=== PATIENT | female | born 2005 | race Two or more races ===

== ENCOUNTER 2024-05-08 00:55 | Emergency (ER) | payer OTHER ==
[~2024-05-08] VITALS: Ht 154.9 cm; Wt 64.5 kg
[2024-05-08 01:41] LABS: APPEARANCE, URINE CLEAR (CLEAR); BACTERIA, URINE AUTO 1+ (NEGATIVE); BILIRUBIN, URINE AUTO NEGATIVE (NEGATIVE); BLOOD, URINE BLOOD NEGATIVE (NEGATIVE); COLOR, URINE STRAW (YELLOW); GLUCOSE, URINE (UA) AUTO NEGATIVE (NEGATIVE); KETONE, URINE AUTO NEGATIVE (NEGATIVE); LEUKOCYTE ESTERASE, URINE AUTO NEGATIVE (NEGATIVE); NITRITE, URINE AUTO NEGATIVE (NEGATIVE); PROTEIN, URINE AUTO NEGATIVE (NEGATIVE); RBC, URINE AUTO 0 /HPF (0-3); SPECIFIC GRAVITY URINE AUTO 1.005 (1.002-1.035); SQUAMOUS EPITHELIAL CELL UR AU 2 /HPF (0-6); UROBILINOGEN, URINE AUTO 0.2 mg/dL (0.0-2.0); WBC, URINE AUTO 0 /HPF (0-3)
[2024-05-08 01:42] LABS: BASO % 0.3 % (0.0-1.0); EOS # 0.1 10^3/uL (0.0-0.5); EOS % 0.6 % (0.0-3.0); HEMATOCRIT 37.5 % (36.0-47.0); HEMOGLOBIN 12.2 g/dl (12.0-15.5); LYMPH % 21.6 % (24.0-44.0); MEAN CORPUSCULAR HEMOGLOBIN 24.7 pg (27.0-33.0); MEAN CORPUSCULAR HGB CONC 32.5 g/dl (32.0-36.5); MEAN CORPUSCULAR VOLUME 75.9 fl (80.0-96.0); MONO % 7.3 % (2.0-8.0); NEUTROPHILS # 9.7 10^3/uL (1.5-8.5); NEUTROPHILS % 69.8 % (36.0-66.0); PLATELET COUNT, AUTOMATED 486 10^3/uL (150-450); RED BLOOD COUNT 4.94 10^6/uL (4.00-5.40); WHITE BLOOD COUNT 13.9 10^3/uL (4.0-10.0)
[2024-05-08 02:01] LABS: BLOOD UREA NITROGEN 5 MG/DL (9-23); CALCIUM LEVEL 10.2 MG/DL (8.5-10.1); CARBON DIOXIDE LEVEL 26 MMOL/L (20-31); CHLORIDE LEVEL 104 MMOL/L (98-107); CREATININE FOR GFR 0.48 MG/DL (0.55-1.30); GLOMERULAR FILTRATION RATE > 60.0 (>60); GLUCOSE, FASTING 90 MG/DL (60-100); POTASSIUM SERUM 3.6 MMOL/L (3.5-5.1); SODIUM LEVEL 136 MMOL/L (136-145)
[2024-05-08 02:03] LABS: HCG, SERUM QUALITATIVE POSITIVE (NEGATIVE)
[2024-05-08 02:46] LABS: HCG, SERUM QUANTITATIVE 57809.5 MIU/ML (<4.2)
[2024-05-08 04:39] VITALS: BP 119/67; TEMP 97.4; O2SAT 98
== END 2024-05-08 04:40 | disposition home or self-care (01) ==
LOC: M ED 00:55
DX: O26.891 Other specified pregnancy related conditions, first trimester (principal); Z3A.01 Less than 8 weeks gestation of pregnancy; R11.0 Nausea

== ENCOUNTER → 2024-06-17 | Outpatient (CLI) | payer OTHER ==
[2024-06-17 15:27] LABS: HEMATOCRIT 37.1 % (36.0-47.0); HEMOGLOBIN 11.9 g/dl (12.0-15.5); MEAN CORPUSCULAR HEMOGLOBIN 25.4 pg (27.0-33.0); MEAN CORPUSCULAR HGB CONC 32.1 g/dl (32.0-36.5); MEAN CORPUSCULAR VOLUME 79.3 fl (80.0-96.0); PLATELET COUNT, AUTOMATED 449 10^3/uL (150-450); RED BLOOD COUNT 4.68 10^6/uL (4.00-5.40); WHITE BLOOD COUNT 10.2 10^3/uL (4.0-10.0)
[2024-06-17 16:26] LABS: HIV 1&2 SCREEN NEGATIVE (NEGATIVE)
[2024-06-17 16:34] LABS: HEPATITIS C VIRUS ABY INDEX < 0.02 INDEX (<0.8)
[2024-06-17 17:00] LABS: GC DNA AMPLIFICATION NEGATIVE (NEGATIVE)
== END ==
LOC: M PLALAB 12:34
PROVIDERS: ATTEND Obstetrics & Gynecology
DX: Z34.91 Encounter for supervision of normal pregnancy, unspecified, first trimester (principal)

== ENCOUNTER → 2024-08-14 | Outpatient (REF) | payer OTHER | LOC: M PLALAB 11:40 | PROVIDERS: ATTEND Nurse Practitioner Family | DX: N89.8 Other specified noninflammatory disorders of vagina (principal) ==

== ENCOUNTER → 2024-08-14 | Outpatient (CLI) | payer OTHER | LOC: M PLALAB 11:51 | PROVIDERS: ATTEND Nurse Practitioner Family | DX: Z34.02 Encounter for supervision of normal first pregnancy, second trimester (principal) ==

== ENCOUNTER → 2024-10-05 | Outpatient (CLI) | payer OTHER | LOC: M RAD 10:36 | PROVIDERS: ATTEND Obstetrics & Gynecology | DX: Z34.92 Encounter for supervision of normal pregnancy, unspecified, second trimester (principal) ==

== ENCOUNTER → 2024-10-07 | Outpatient (CLI) | payer OTHER ==
[2024-10-07 13:40] LABS: GLUCOSE CHALLENGE TEST 1 HOUR 167 MG/DL (LESS THAN 140)
[2024-10-07 13:53] LABS: HEMATOCRIT 34.2 % (36.0-47.0); MEAN CORPUSCULAR HEMOGLOBIN 27.4 pg (27.0-33.0); MEAN CORPUSCULAR HGB CONC 32.2 g/dl (32.0-36.5); MEAN CORPUSCULAR VOLUME 85.1 fl (80.0-96.0); PLATELET COUNT, AUTOMATED 405 10^3/uL (150-450); RED BLOOD COUNT 4.02 10^6/uL (4.00-5.40); WHITE BLOOD COUNT 11.8 10^3/uL (4.0-10.0)
[2024-10-07 14:10] LABS: HIV 1&2 SCREEN NEGATIVE (NEGATIVE)
[2024-10-07 14:17] LABS: HEPATITIS C VIRUS ABY INDEX < 0.02 INDEX (<0.8)
[2024-10-07 15:27] LABS: GC DNA AMPLIFICATION NEGATIVE (NEGATIVE)
== END ==
LOC: M PLALAB 09:00
PROVIDERS: ATTEND Nurse Practitioner Family
DX: Z34.02 Encounter for supervision of normal first pregnancy, second trimester (principal)

== ENCOUNTER → 2024-10-12 | Outpatient (CLI) | payer OTHER | LOC: M LAB 07:51 | PROVIDERS: ATTEND Nurse Practitioner Family | DX: R73.09 Other abnormal glucose (principal) ==

== ENCOUNTER → 2024-10-22 | Outpatient (CLI) | payer OTHER | LOC: M RAD 15:21 | PROVIDERS: ATTEND Nurse Practitioner Family | DX: Z34.03 Encounter for supervision of normal first pregnancy, third trimester (principal) ==

== ENCOUNTER → 2024-11-18 | Outpatient (CLI) | payer OTHER ==
[2024-11-18 13:31] LABS: PERCENT SATURATION 32.1 % (13.2-45.0)
[2024-11-18 13:32] LABS: HEMATOCRIT 36.5 % (36.0-47.0); HEMOGLOBIN 11.7 g/dl (12.0-15.5); MEAN CORPUSCULAR HEMOGLOBIN 26.2 pg (27.0-33.0); MEAN CORPUSCULAR HGB CONC 32.1 g/dl (32.0-36.5); MEAN CORPUSCULAR VOLUME 81.8 fl (80.0-96.0); PLATELET COUNT, AUTOMATED 381 10^3/uL (150-450); RED BLOOD COUNT 4.46 10^6/uL (4.00-5.40); WHITE BLOOD COUNT 10.8 10^3/uL (4.0-10.0)
[2024-11-18 13:34] LABS: FERRITIN 5.1 NG/ML (7.3-270.7)
== END ==
LOC: M PLALAB 10:48
PROVIDERS: ATTEND Nurse Practitioner Family
DX: R42 Dizziness and giddiness (principal)

== ENCOUNTER → 2024-11-30 | Outpatient (REF) | payer OTHER | LOC: M SFHCWAGY 12:43 | PROVIDERS: ATTEND Nurse Practitioner Family | DX: Z36.89 Encounter for other specified antenatal screening (principal); Z3A.36 36 weeks gestation of pregnancy ==

== ENCOUNTER 2024-12-25 21:56 | Inpatient (IN) | payer OTHER ==
[~2024-12-25] VITALS: Ht 154.9 cm; Wt 70.5 kg
[2024-12-25] MEDS ORDERED: FERR325T3 PO (22:06)
[2024-12-25] MEDS ORDERED: PRENTAB9 PO (22:06)
[2024-12-25] MEDS ORDERED: HOME MED LIST COMPLETE! XX SCH (22:10)
[2024-12-25 22:11] VITALS: BP 138/86; O2SAT 97
[2024-12-25] MEDS ORDERED: CARBOPROST TROMETHAMINE 250 MCG/ML AMP IM PRN (23:40)
[2024-12-25] MEDS ORDERED: METHYLERGONOVINE MALEATE 0.2MG/ML 1ML VIAL IM PRN (23:40)
[2024-12-25] MEDS ORDERED: OXYTOCIN DRIP 30 UNITS in IV 1 EA IV PRN (23:40)
[2024-12-25] MEDS ORDERED: TRANEXAMIC ACID INJection 1,000 MG in NS 100 ML IV PRN (23:40)
[2024-12-25] MEDS ORDERED: LIDOCAINE 1% MDV 20ML VIAL INFIL PRN (23:40)
[2024-12-25 23:48] LABS: HEMATOCRIT 38.3 % (36.0-47.0); HEMOGLOBIN 12.8 g/dl (12.0-15.5); MEAN CORPUSCULAR HEMOGLOBIN 27.1 pg (27.0-33.0); MEAN CORPUSCULAR HGB CONC 33.4 g/dl (32.0-36.5); PLATELET COUNT, AUTOMATED 271 10^3/uL (150-450); RED BLOOD COUNT 4.73 10^6/uL (4.00-5.40); WHITE BLOOD COUNT 11.4 10^3/uL (4.0-10.0)
[2024-12-26] VITALS (38 sets, daily range): BP systolic 90–145; BP diastolic 51–93; O2SAT 97
[2024-12-26 00:41] LABS: HIV 1&2 SCREEN NEGATIVE (NEGATIVE)
[2024-12-26 00:49] LABS: HEPATITIS C VIRUS ABY INDEX 0.03 INDEX (<0.8)
[2024-12-26] MEDS: BUTORPHANOL 2 MG/ML 1ML VIAL IV ONE (02:16)
[2024-12-26] MEDS: LR 1,000 ML IV SCH (02:16)
[2024-12-26] MEDS: PROMETHAZINE 25MG/ML 1ML VIAL IV ONE (02:17)
[2024-12-26] MEDS ORDERED: NALOXONE INJ 0.4MG/1ML VIAL IV PRN (07:00)
[2024-12-26] MEDS ORDERED: ePHEDrine SULFATE 25 MG/5 ML(5MG/ML) SYRINGE IVP PRN (07:00)
[2024-12-26] MEDS ORDERED: ONDANSETRON 4MG 2ML VIAL IV PRN (07:00)
[2024-12-26] MEDS ORDERED: EPIDURAL/PCA KEYS XX PRN (07:00)
[2024-12-26] MEDS ORDERED: LR 500 ML IV PRN (07:00)
[2024-12-26] MEDS ORDERED: diphenhydrAMINE 50MG/ML VIAL IV PRN (07:00)
[2024-12-26] MEDS: LACTATED RINGER'S 1000 ML IV STA (08:19)
[2024-12-26] MEDS: FENTANYL/ROPIVACAINE/NACL BAG 100 ML EPIDURAL SCH (08:22)
[2024-12-26] MEDS: OXYTOCIN DRIP 30 UNITS in IV 1 EA IV SCH ×2 (10:13→16:27)
[2024-12-26 15:36] LABS: CORD GAS ABE V 0.4; CORD GAS HCO3 V 25.4 MMOL/L; CORD GAS O2 SAT V 26.7 %; CORD GAS PCO2 V 42.6 mmHg; CORD GAS PH V 7.394 UNITS; CORD GAS SBC V 22.8 MMOL/L; CORD GAS TCO2 V 26.7 MMOL/L
[2024-12-26 15:37] LABS: CORD GAS ABE A 1.1; CORD GAS HCO3 A 26.8 MMOL/L; CORD GAS O2 SAT A 22.4 %; CORD GAS PCO2 A 46.1 mmHg; CORD GAS PH A 7.382 UNITS; CORD GAS PO2 A 12.1 mmHg; CORD GAS SBC A 23.4 MMOL/L; CORD GAS TCO2 A 28.2 MMOL/L
[2024-12-26] MEDS: OXYTOCIN INJ 10UNITS/ML 1ML VIAL IV ONE (15:40)
[2024-12-26] MEDS ORDERED: ACETAMINOPHEN 500 MG TAB PO PRN (16:20)
[2024-12-26] MEDS ORDERED: METHYLERGONOVINE MALEATE 0.2 MG TAB PO PRN (16:20)
[2024-12-26] MEDS ORDERED: ACETAMINOPHEN 325 MG TAB PO PRN (16:20)
[2024-12-26] MEDS ORDERED: DOCUSATE SODIUM 100MG CAPSULE PO PRN (16:20)
[2024-12-26] MEDS ORDERED: MOM 30ML SUSPENSION UDC PO PRN (16:20)
[2024-12-26] MEDS ORDERED: RHOGAM 300MCG (1500IU) INJ IM SCH (16:20)
[2024-12-26] MEDS ORDERED: IBUPROFEN 600MG TAB PO PRN (16:20)
[2024-12-26] MEDS ORDERED: DIBUCAINE 1% OINTMENT 30GM TOP PRN (16:20)
[2024-12-26] MEDS: IBUPROFEN 800 MG TAB PO PRN (17:47)
[2024-12-27 06:00] VITALS: BP 143/80; O2SAT 98
[2024-12-27 07:19] LABS: HEMATOCRIT 34.6 % (36.0-47.0); HEMOGLOBIN 11.4 g/dl (12.0-15.5); MEAN CORPUSCULAR HGB CONC 32.9 g/dl (32.0-36.5); PLATELET COUNT, AUTOMATED 238 10^3/uL (150-450); RED BLOOD COUNT 4.22 10^6/uL (4.00-5.40); WHITE BLOOD COUNT 13.9 10^3/uL (4.0-10.0)
[2024-12-27] MEDS: PRENATAL VITAMINS CHEWABLE TABLET PO SCH (11:00)
[2024-12-27 18:01] VITALS: BP 118/70; O2SAT 96
[2024-12-28 06:10] VITALS: BP 133/91; O2SAT 98
[2024-12-28] MEDS ORDERED: MEASLES,MUMPS,RUBELLA VACCINE INJ (MMR-II) SC.IMMUN ONE (09:00)
[2024-12-28] MEDS ORDERED: IBUP80TA PO (11:18)
[2024-12-28] MEDS ORDERED: ACET-683 PO (11:18)
== END 2024-12-28 11:59 | disposition home or self-care (01) | DRG 807 ==
LOC: M LDO 21:56 → M LDI 23:10 → M OBS 12-26 18:05
PROVIDERS: ADMIT Advanced Practice Midwife; ATTEND Obstetrics & Gynecology
PROC: 10E0XZZ Delivery of Products of Conception, External Approach (ICD-10-PCS; principal; 2024-12-26)
PROC: 10907ZC Drainage of Amniotic Fluid, Therapeutic from Products of Conception, Via Natural or Artificial Opening (ICD-10-PCS; 2024-12-26)
DX: O80 Encounter for full-term uncomplicated delivery (principal); Z37.0 Single live birth; Z3A.39 39 weeks gestation of pregnancy

== ENCOUNTER 2025-05-22 04:57 | Emergency (ER) | payer OTHER ==
[~2025-05-22] VITALS: Ht 157.5 cm; Wt 64.4 kg
[~2025-05-22 04:57] MED LIST: ACET-683 PO; FERR325T3 PO; IBUP80TA PO; PRENTAB9 PO
[2025-05-22 05:42] LABS: BASO # 0.1 10^3/uL (0.0-0.2); BASO % 0.5 % (0.0-1.0); EOS # 0.0 10^3/uL (0.0-0.5); EOS % 0.1 % (0.0-3.0); LYMPH # 0.5 10^3/uL (1.5-5.0); LYMPH % 4.5 % (24.0-44.0); MONO # 0.9 10^3/uL (0.0-0.8); MONO % 7.6 % (2.0-8.0); NEUTROPHILS # 10.3 10^3/uL (1.5-8.5); NEUTROPHILS % 86.8 % (36.0-66.0); PLATELET COUNT, AUTOMATED 468 10^3/uL (150-450)
[2025-05-22] MEDS: IBUPROFEN 600 MG TAB PO ONE (05:49)
[2025-05-22 06:06] LABS: ALT/SGPT 26 U/L (7.0-40); AST/SGOT 28 U/L (<34); C REACTIVE PROTEIN QUANTITATIV 3.25 MG/DL (<1.0); CALCIUM LEVEL 9.9 MG/DL (8.5-10.1); CARBON DIOXIDE LEVEL 21 MMOL/L (20-31); CHLORIDE LEVEL 103 MMOL/L (98-107); CREATININE FOR GFR 0.55 MG/DL (0.55-1.30); GLOMERULAR FILTRATION RATE > 90.0 (>60); POTASSIUM SERUM 3.9 MMOL/L (3.5-5.1); SODIUM LEVEL 139 MMOL/L (136-145)
[2025-05-22 07:28] LABS: HCG, SERUM QUALITATIVE NEGATIVE (NEGATIVE)
[2025-05-22 07:56] LABS: KETONE, URINE AUTO RFX NEGATIVE (NEGATIVE); LEUKOCYTE ESTERASE UR AUTO RFX NEGATIVE (NEGATIVE); MUCUS, URINE RFX SMALL (NEGATIVE); NITRITE, URINE AUTO RFX NEGATIVE (NEGATIVE); RBC, URINE AUTO RFX 1 /HPF (0-3); SQUAM EPITHELIAL CELL UR AURFX 1 /HPF (0-6); WBC, URINE AUTO RFX 2 /HPF (0-3)
[2025-05-22] MEDS: NS (Normal Saline) 0.9% 1,000 ML IV ONE (08:07)
[2025-05-22] MEDS ORDERED: ISOVUE-370 76% 100 ML VIAL As Ordered ONE (08:24)
[2025-05-22 09:15] VITALS: TEMP 99.3
[2025-05-22 10:27] VITALS: BP 112/57; O2SAT 95
[2025-05-22] MEDS ORDERED: ACET-910 PO (10:28)
[2025-05-22] MEDS ORDERED: EQ H1PAD EX (10:28)
[2025-05-22] MEDS ORDERED: AMOX875T2 PO (10:28)
[2025-05-22] MEDS ORDERED: META28.32 PO (10:29)
[2025-05-22] MEDS ORDERED: IBUP-1114 PO (10:29)
[2025-05-22] MEDS: AUGMENTIN 875 MG TAB PO ONE (10:34)
== END 2025-05-22 10:49 | disposition home or self-care (01) ==
LOC: M ED 04:57
DX: R50.9 Fever, unspecified (principal); K92.2 Gastrointestinal hemorrhage, unspecified; K64.9 Unspecified hemorrhoids; Z79.899 Other long term (current) drug therapy
CPT/HCPCS: 71046; 74177; 80053; 81001; 83605; 84145; 84703; 85025; 86140; 87040; 87486; 87581; 87633; 87798; 96360; 96361; 99284; Q9967

== ENCOUNTER → 2025-07-12 | Outpatient (REF) | payer OTHER ==
[~2025-07-12] MED LIST changes: +ACET-910 PO; +AMOX875T2 PO; +EQ H1PAD EX; +IBUP-1114 PO; +META28.32 PO
[2025-07-14 14:06] LABS: HPV APTIMA Not Detected (Not Detected)
== END ==
LOC: M PLALAB 10:04
PROVIDERS: ATTEND Nurse Practitioner Family
DX: Z01.419 Encounter for gynecological examination (general) (routine) without abnormal findings (principal)
CPT/HCPCS: 87624; G0123